=== PATIENT | male | born 2005 | race Caucasian/White ===

== ENCOUNTER 2024-01-16 04:11 | Outpatient (CLI) | payer BC, SELFPAY | END 2024-01-16 04:12 | disposition home or self-care (01) | LOC: AMB 01-21 01:04 | PROVIDERS: Visit Provider Family Medicine | DX: R41.82 Altered mental status, unspecified (principal); F10.129 Alcohol abuse with intoxication, unspecified | CPT/HCPCS: A0425; A0429 ==

== ENCOUNTER 2024-01-16 04:36 | Emergency (ER) | payer BC, SELFPAY ==
[2024-01-16 04:39] VITALS: BP 145/84; PULSE 92; RESP 20; TEMP 36.8; O2SAT 98; BMI 22.9
--- NOTE | 2024-01-16 04:48 | ED.GENADULT ---
HPI - General Adult General Chief complaint: Alcohol/Intoxication Stated complaint: ETOH Time Seen by Provider: 01/16/24 04:41 Source: patient and police Mode of arrival: other (Police) History of Present Illness HPI narrative: 18-year-old male presents via police after he was found sleeping in the courtyard with signs of intoxication, no obvious injury. Patient is alert and answering questions easily upon arrival. Admits that he has been drinking alcohol since 11:00 a.m.. Denies pain or any injury. No headache. Has been drinking beer and for low go. Does not disclose where he was drinking. Denies drug use. No aggressive or combative behavior noted. No prior similar ED visits. Denies prior legal history. He is from town, not an out of area college student. Reports that he could call his mom for a ride home. Has no acute complaints today. No additional information from the police. States that his past medical history is benign, no major long-term health problems. No prescription medications or allergies. Other than the intoxication, ROS is negative times 12 systems. Related Data Home Medications ?Medication ?Instructions ?Recorded ?Confirmed No Known Home Medications 02/18/23 01/16/24 Allergies Allergy/AdvReac Type Severity Reaction Status Date / Time No Known Drug Allergies Allergy Verified 01/16/24 04:41 Exam Const: Vital Signs, click to edit/add: Vital Signs - 24 hr 01/16/24 04:39 Temperature 98.2 F Pulse Rate [Right Pulse Oximeter] 92 Respiratory Rate 20 Blood Pressure [Ri ght Upper Arm] 145/84 H Pulse Oximetry 98 Oxygen Delivery Me thod Room Air Documenting provider has reviewed patient's vital signs: yes Common normals: no apparent distress and alert General appearance: cooperative and comfortable Other: Breath smells of alcohol, clothing smells of Bon fire. No burn harvey, soiling, blood or clothing tears. HENMT: Common normals: normocephalic, head/scalp atraumatic and TM's normal bilaterally Head and scalp: normocephalic and atraumatic Face and sinus: normal facial exam and face symmetric Tympanic membrane: TM's normal bilaterally Mouth: oral and palatal mucosa normal, lip normal and tongue normal Throat: posterior oropharynx normal Other: Teeth normal with no signs of dental injury Eye: Common normals: PERRL, EOMs intact bilaterally and conjunctivae normal Conjunctiva: conjunctiva(e) normal Pupil: PERRL Neck & C-Spine: Common normals: full ROM, no lymphadenopathy and no meningeal signs General: normal visual inspection Cervical spine: cervical ROM normal; no cervical spine tenderness Chest: Common normals: inspection of chest normal and palpation of chest normal Resp: Common normals: normal respiratory effort, no use of accessory muscles and clear to auscultation bilaterally Effort & inspection: able to speak in complete sentences Auscultation: clear to auscultation bilaterally Cardio: Common normals: regular rate, regular rhythm, S1 normal heart sound, S2 normal heart sound and no murmurs Rate: regular rate Rhythm: regular rhythm Heart sounds: S1 normal and S2 normal GI: Common normals: Normal to inspection, nondistended, normoactive bowel sounds present, soft to palpation, non-tender, no hepatosplenomegaly and no masses Palpation: soft and no hepatosplenomegaly Back & Pelvis: Common normals: thoracic and lumbar spine normal to inspection and no thoracic nor lumbar tenderness Extremity: Common normals: normal to inspection, normal capillary refill and no pedal edema Neuro: Sensorium/orientation: alert Meningeal signs: no meningeal signs Speech: speech normal Motor exam: strength 5/5 throughout, no tremor noted and no movement abnormalities noted Psych: Common normals: speech normal Appearance: grossly normal Attitude: engaged Speech: normal speech Mood and affect: euthymic mood Insight: fair Judgement: fair Other: Mildly intoxicated but answers questions appropriately. Getting at times. No signs of significant delirium. Skin: Common normals: no rashes or lesions noted Narrative: No signs of injury or trauma on exam. General skin exam: no rashes or lesions noted Course Course ED Course: Mild alcohol intoxication without signs of neurological injury, bodily harm, airway impairment. Patient does not require laboratory or imaging studies. If he can be discharged with a responsible adult, he may go home. He is instructed to cease alcohol consumption for the night. Counseled to seek county resources if he has a problem with alcohol. Drink plenty of nonalcoholic fluids for the next couple of days. Written instructions provided. Patient reports that he can call his mother. Nursing team will assist him with doing so. Vital Signs Vital signs: Initial Vital Signs Temperature 98.2 F 01/16/24 04:39 Temperature Source Temporal Artery Scan 01/16/24 04:39 Pulse Rate 92 01/16/24 04:39 Respiratory Rate 20 01/16/24 04:39 Blood Pressure 145/84 H 01/16/24 04:39 Blood Pressure Mean 104 01/16/24 04:39 Blood Pressure Position Sitting 01/16/24 04:39 Pulse Oximetry 98 01/16/24 04:39 Oxygen Delivery Method Room Air 01/16/24 04:39 Vital Signs Temperature 98.2 F 01/16/24 04:39 Pulse Rate 92 01/16/24 04:39 Respiratory Rate 20 01/16/24 04:39 Blood Pressure 145/84 H 01/16/24 04:39 Pulse Oximetry 98 01/16/24 04:39 Oxygen Delivery Method Room Air 01/16/24 04:39 Temperature 98.2 F 01/16/24 04:39 Pulse Rate 92 01/16/24 04:39 Respiratory Rate 20 01/16/24 04:39 Blood Pressure 145/84 H 01/16/24 04:39 Pulse Oximetry 98 01/16/24 04:39 Oxygen Delivery Method Room Air 01/16/24 04:39 Discharge Plan Discharge Clinical Impression: Alcoholic intoxication Patient Disposition: Home w/ Parent or Adult Condition: Stable Instructions: Alcohol Intoxication (ED) Additional Instructions: You do not seem to have any signs of major injury from your alcohol intoxication. Heavy alcohol drinking at your age can be dangerous. If you feel you have a problem with alcohol, contact your local [facility] social welfare research worker department for list of resources regarding alcohol treatment options. It is okay to use Tylenol and/or ibuprofen for hangover symptoms which are likely to include headache, dizziness and nausea. Drink plenty of nonalcoholic fluids for the next 48 hours to help minimize her symptoms. We did not check alcohol levels as your following commands and appeared to be clinically safe. He will be safe to operate a moving vehicle after 2:00 p.m.. Activity Level: Activity as Tolerated Discharge Diet: Regular Prescriptions: No Action No Known Home Medications Follow Up/Referrals: Provider,Not a Local [Primary Care Provider] - Stand Alone Forms: [employer] Info Instructions
[2024-01-16 05:14] VITALS: BP 132/70; PULSE 85; RESP 20; TEMP 36.8; O2SAT 98
[2024-01-16 05:15] VITALS: BP 132/70; PULSE 85; RESP 20; TEMP 36.8
== END 2024-01-16 05:16 | disposition home or self-care (01) ==
LOC: ED 04:49
PROVIDERS: Emergency Provider Family Medicine
DX: F10.129 Alcohol abuse with intoxication, unspecified (principal)
CPT/HCPCS: 99282; 99283